=== PATIENT | female | born 1965 | race Caucasian/White ===

== ENCOUNTER 2017-10-11 13:21 | Outpatient (CLI) | payer OTHER ==
--- NOTE | 2017-10-14 14:26 | MMO ---
MAMMOGRAM DIGITAL SCREENING BILATERAL: DATE: 10/11/17 COMPARISON: 02/16/13. HISTORY: 52-year-old female for routine bilateral screening mammogram. TECHNIQUE: Digital mammographic views. Computer-aided detection (CAD) utilized. FINDINGS: The breasts are almost entirely fatty replaced. There is no evidence of suspicious mass, suspicious calcifications, or architectural distortion. The re is no significant interval change since the prior mammogram. IMPRESSION: 1. BIRADS 1 - Negative. 2. Recommendation: routine bilateral annual screening mammogram (unless the patient develops suspici ous clinical findings that would warrant earlier imaging follow up). POS: [facility]
== END 2017-10-11 13:22 | disposition home or self-care (01) ==
LOC: SCSMAMMO 13:21
PROVIDERS: ATTEND Family Medicine
DX: Z12.31 Encounter for screening mammogram for malignant neoplasm of breast (principal)
CPT/HCPCS: 77067

== ENCOUNTER 2018-05-11 13:09 | Outpatient (CLI) | payer OTHER ==
--- NOTE | 2018-05-11 15:37 | CT ---
PARANASAL SINUS CT NONCONTRAST: INDICATION: Facial pain, 52-year-old female. FINDINGS: Frontal sinus is clear. Ethmoid sinus is patent, as is the sphenoid sinus. There is a retention cys t at the inferior left maxillary sinus. Right maxillary sinus is clear. There is mild rightward yeny al septal deviation with an associated nasal septal spur. No evidence of otomastoid effusion. Unenh anced orbital contents are grossly unremarkable. There is prominent streak artifact emanating from t he left aspect of the oral cavity which limits evaluation. IMPRESSION: Retention cyst formation at the inferior left maxillary sinus. There is no acute paranasal sinus flu id level. POS: [facility]
== END 2018-05-11 13:10 | disposition home or self-care (01) ==
LOC: SCSCT 13:09
PROVIDERS: ATTEND Family Medicine
DX: J32.8 Other chronic sinusitis (principal)

== ENCOUNTER 2018-07-29 16:47 | Emergency (ER) | payer OTHER ==
[2018-07-29] MEDS ORDERED: Ketorolac Tromethamine 60 MG/2 ML VIAL ONE (17:22)
[2018-07-29] MEDS ORDERED: predniSONE 10 MG TAB ONE (17:22)
== END 2018-07-29 17:33 | disposition home or self-care (01) ==
LOC: SCSER 16:47
DX: J32.9 Chronic sinusitis, unspecified (principal); M54.2 Cervicalgia
CPT/HCPCS: 96372; J1885; J7512

== ENCOUNTER 2018-12-26 20:30 | Outpatient (CLI) | payer OTHER | END 2018-12-26 20:31 | disposition home or self-care (01) | LOC: SLEEPLAB 20:30 | PROVIDERS: ATTEND Internal Medicine Critical Care Medicine | DX: G47.33 Obstructive sleep apnea (adult) (pediatric) (principal); G25.81 Restless legs syndrome; R53.83 Other fatigue; R09.89 Other specified symptoms and signs involving the circulatory and respiratory systems; G47.61 Periodic limb movement disorder; R06.83 Snoring; G47.00 Insomnia, unspecified; F41.9 Anxiety disorder, unspecified | CPT/HCPCS: 95811 ==

== ENCOUNTER 2019-06-13 13:25 | Outpatient (CLI) | payer OTHER ==
--- NOTE | 2019-06-13 13:56 | RAD ---
Exam: XR Foot Lt 3 View STANDARD HISTORY: Gout COMPARISON: None FINDINGS: There is deformity involving the left fifth metatarsal likely due to prior injury. There is also slig ht deformity involving the medial aspect of the distal metatarsal of the great toe, but no osseous erosions or acute fracture is seen. No joint space narrowing is present. No subcutaneous calcificatio ns are identified. A plantar calcaneal enthesophyte is seen. No other findings. IMPRESSION: No acute osseous abnormality.
== END 2019-06-13 13:26 | disposition home or self-care (01) ==
LOC: SCSRAD 13:25
PROVIDERS: ATTEND Family Medicine
DX: M10.9 Gout, unspecified (principal)

== ENCOUNTER 2019-09-13 14:31 | Outpatient (CLI) | payer OTHER ==
--- NOTE | 2019-09-13 15:27 | RAD ---
XR Chest Pa Lat STANDARD HISTORY: Cough, fever, shortness of breath COMPARISON: 03/09/2019 FINDINGS: The heart size is normal. The lungs are well expanded without focal areas of consolidation, pneumothorax or pleural effusions. There are postop changes and metallic hardware in the left humerus. IMPRESSION: No radiographic evidence of acute cardiopulmonary process.
[2019-09-18 00:12] LABS: Alkaline Phosphastase Total 177 IU/L (39-117); Bone 52 % (14-68); Intestinal 0 % (0-18); Liver 48 % (18-85)
== END 2019-09-13 14:32 | disposition home or self-care (01) ==
LOC: SCSRAD 14:31
PROVIDERS: ATTEND Family Medicine
DX: R05 Cough (principal); R79.9 Abnormal finding of blood chemistry, unspecified; M25.50 Pain in unspecified joint
CPT/HCPCS: 36415; 71046; 83520; 84075; 86038; 86140; 86200; 86225

== ENCOUNTER 2021-01-02 15:22 | Outpatient (CLI) | payer BC ==
[2021-01-03 00:49] LABS: SARS-CoV-2 PCR by NAA Not Detected (NotDetected)
== END 2021-01-02 15:23 | disposition home or self-care (01) ==
LOC: LABBT 15:22
PROVIDERS: ATTEND Internal Medicine Gastroenterology
DX: Z01.812 Encounter for preprocedural laboratory examination (principal); Z20.822 Contact with and (suspected) exposure to COVID-19
CPT/HCPCS: U0003; U0005

== ENCOUNTER 2021-01-06 06:50 | Day surgery (SDC) | payer BC ==
[2020-11-19 09:27] VITALS: BMI 47.6
[2021-01-06] MEDS ORDERED: PROPOFOL 200 MG/20 ML VIAL ONE (08:59)
== END 2021-01-06 10:38 | disposition home or self-care (01) ==
LOC: SDC 06:50
PROVIDERS: ATTEND Internal Medicine Gastroenterology
PROC: 0DBL8ZX Excision of Transverse Colon, Via Natural or Artificial Opening Endoscopic, Diagnostic (ICD-10-PCS; principal; 2021-01-06)
PROC: 0DBM8ZX Excision of Descending Colon, Via Natural or Artificial Opening Endoscopic, Diagnostic (ICD-10-PCS; principal; 2021-01-06)
DX: Z12.11 Encounter for screening for malignant neoplasm of colon (principal); D12.4 Benign neoplasm of descending colon; D12.3 Benign neoplasm of transverse colon; K57.30 Diverticulosis of large intestine without perforation or abscess without bleeding; J45.909 Unspecified asthma, uncomplicated; G47.30 Sleep apnea, unspecified; M79.7 Fibromyalgia; Z86.010 Personal history of colon polyps; Z88.1 Allergy status to other antibiotic agents; Z91.013 Allergy to seafood; Z90.49 Acquired absence of other specified parts of digestive tract; Z95.5 Presence of coronary angioplasty implant and graft; Z90.710 Acquired absence of both cervix and uterus; Z98.890 Other specified postprocedural states; Z79.82 Long term (current) use of aspirin; Z79.899 Other long term (current) drug therapy
CPT/HCPCS: 88305; J2704

== ENCOUNTER 2021-04-27 12:13 | Outpatient (CLI) | payer BC | END 2021-04-27 12:14 | disposition home or self-care (01) | LOC: SCSRAD 12:13 | PROVIDERS: ATTEND Family Medicine | DX: R05.9 Cough, unspecified (principal) | CPT/HCPCS: 71046 ==

== ENCOUNTER 2021-12-25 10:20 | Outpatient (CLI) | payer BC | END 2021-12-25 10:21 | disposition home or self-care (01) | LOC: BICMAMMO 10:20 | PROVIDERS: ATTEND Family Medicine | DX: N63.0 Unspecified lump in unspecified breast (principal) ==

== ENCOUNTER 2024-02-18 00:51 | Observation (INO) | payer BC ==
[2024-02-18 01:42] LABS: #Basophils 0.07 10x3/uL (0.0-0.2); %Basophils 0.9 % (0.0-1.0); %Eosinophils 0.6 % (0.0-10.0); %Lymphocytes 32.2 % (21.0-51.0); %Monocytes 5.6 % (0.0-10.0); %Neutrophils 60.5 % (42.0-75.0); Hematocrit 46.1 % (36.0-47.0); Hemoglobin 14.9 g/dL (12.0-16.0); Mean Corpuscular HGB CONC 32.3 g/dL (32.0-36.0); Mean Corpuscular Hemoglobin 28.2 pg (27.0-31.0); Mean Corpuscular Volume 87.1 fL (78.0-98.0); Mean Platelet Volume 10.2 fL (7.4-10.4); Platelet Count 330 10x3/uL (130-400); RBC Distribution Width 13.9 % (11.5-14.5); Red Blood Cell (RBC) Count 5.29 mill/uL (4.20-5.40)
[2024-02-18 01:55] LABS: INR-International Normal Ratio 1.1; PTT 29.4 sec (22.9-36.1); Prothrombin Time 13.9 sec (12.0-14.7)
[2024-02-18 01:58] LABS: ALT (SGPT) 8 U/L (8-55); AST (SGOT) 10 U/L (5-34); Albumin 3.7 g/dL (3.5-5.0); Alkaline Phosphatase 113 U/L (40-110); Anion Gap 13 mmol/L (10-20); BUN (Urea Nitrogen) 10 mg/dL (9.8-20.1); Bilirubin, Total 0.3 mg/dL (0.2-1.2); Calc. Creatinine Clearance 0 mL/min (70-130); Calcium 9.1 mg/dL (7.8-10.44); Carbon Dioxide 25 mmol/L (22-29); Chloride 108 mmol/L (98-107); Estimated GFR 91; Globulin 3.2 g/dL (2.4-3.5); Glucose 83 mg/dL (70-105); Magnesium 2.1 mg/dL (1.6-2.6); Potassium 3.7 mmol/L (3.5-5.1); Protein, Total 6.9 g/dL (6.0-8.3); Sodium 142 mmol/L (136-145)
[2024-02-18 02:02] LABS: Troponin I Less than 0.010 ng/mL (< 0.028)
[2024-02-18] MEDS ORDERED: Aspirin Chewable 81 MG TAB ONE (02:23)
[2024-02-18] MEDS ORDERED: Ondansetron ODT 4 MG TAB PO PRN (04:37)
[2024-02-18] MEDS ORDERED: Acetaminophen 325 MG TAB PO PRN (04:37)
[2024-02-18 05:56] VITALS: BMI 36.8
[2024-02-18 07:20] LABS: CRP,High Sensitivity (Inhouse) 0.7 mg/dL (< or = 0.5)
[2024-02-18 07:54] LABS: Hemoglobin A1c 5.1 % (4.0-6.0)
[2024-02-18] MEDS: Enoxaparin 40 MG (0.4 mL) SYRINGE SC SCH (08:19)
[2024-02-18] MEDS ORDERED: Iopamidol-370 76% 500 ML MDV (1 ML CHARGE) ONE (10:49)
[2024-02-18] MEDS ORDERED: tiZANidine HCl 4 MG TAB PO PRN (15:50)
[2024-02-18] MEDS ORDERED: Albuterol 200 PUFF (6.7GM INHALER) INH PRN (15:50)
[2024-02-18] MEDS ORDERED: OFATUMUMAB 20 MG/0.4 ML SC SCH (16:00)
[2024-02-19 04:01] LABS: Cardiac Risk 4.2 (Less than 4.5)
[2024-02-19 06:37] LABS: #Basophils 0.07 10x3/uL (0.0-0.2); %Basophils 0.9 % (0.0-1.0); %Eosinophils 0.7 % (0.0-10.0); %Lymphocytes 33.1 % (21.0-51.0); %Monocytes 7.3 % (0.0-10.0); %Neutrophils 57.6 % (42.0-75.0); Hematocrit 41.8 % (36.0-47.0); Hemoglobin 13.6 g/dL (12.0-16.0); Mean Corpuscular HGB CONC 32.5 g/dL (32.0-36.0); Mean Corpuscular Hemoglobin 28.9 pg (27.0-31.0); Mean Corpuscular Volume 88.7 fL (78.0-98.0); Mean Platelet Volume 10.7 fL (7.4-10.4); Platelet Count 342 10x3/uL (130-400); RBC Distribution Width 14.3 % (11.5-14.5); Red Blood Cell (RBC) Count 4.71 mill/uL (4.20-5.40)
[2024-02-19 06:57] LABS: ALT (SGPT) 9 U/L (8-55); AST (SGOT) 10 U/L (5-34); Albumin 3.3 g/dL (3.5-5.0); Alkaline Phosphatase 105 U/L (40-110); Anion Gap 16 mmol/L (10-20); BUN (Urea Nitrogen) 13 mg/dL (9.8-20.1); Bilirubin, Total 0.3 mg/dL (0.2-1.2); Calc. Creatinine Clearance 132 mL/min (70-130); Calcium 9.2 mg/dL (7.8-10.44); Carbon Dioxide 24 mmol/L (22-29); Chloride 106 mmol/L (98-107); Estimated GFR 93; Glucose 92 mg/dL (70-105); Potassium 3.6 mmol/L (3.5-5.1); Protein, Total 6.3 g/dL (6.0-8.3); Sodium 142 mmol/L (136-145)
[2024-02-19] MEDS: Levothyroxine 175 MCG TAB PO SCH (07:07)
[2024-02-19] MEDS: Aspirin 81 mg Enteric Coated Tablet PO SCH (08:43)
[2024-02-19] MEDS: Amantadine HCl 100 mg Capsule PO SCH (08:43)
[2024-02-19] MEDS: Loratadine 10 MG TAB PO SCH (08:44)
[2024-02-19] MEDS: Losartan 25 MG TAB PO SCH (08:44)
[2024-02-19] MEDS: Pantoprazole DR 40 MG TAB PO SCH (08:44)
[2024-02-19] MEDS: Oxybutynin ER 5 MG TAB PO SCH (08:44)
[2024-02-19] MEDS: Multivitamin W/ Minerals 1 TAB PO SCH (08:44)
[2024-02-19] MEDS: DULoxetine 60 MG CAP PO SCH (08:44)
[2024-02-19] MEDS ORDERED: ALPHA LIPOIC ACID 600 MG PO SCH (09:00)
[2024-02-19] MEDS: Lorazepam 2 MG/ML VIAL SLOW IVP PRN (09:31)
[2024-02-19] MEDS ORDERED: Magnevist 469MG/ML 20 ML VIAL ONE ×3 (11:08)
[2024-02-19 12:35] VITALS: BP 132/83; TEMP 98.1
== END 2024-02-19 16:08 | disposition home or self-care (01) ==
LOC: ERS 00:51 → 2SE 03:47
PROVIDERS: ADMIT Family Medicine; ATTEND Family Medicine
DX: R53.1 Weakness (principal); G35 Multiple sclerosis; I10 Essential (primary) hypertension; E03.9 Hypothyroidism, unspecified; Z90.710 Acquired absence of both cervix and uterus; Z90.49 Acquired absence of other specified parts of digestive tract; Z86.73 Personal history of transient ischemic attack (TIA), and cerebral infarction without residual deficits; Z88.1 Allergy status to other antibiotic agents; Z91.013 Allergy to seafood; Z79.890 Hormone replacement therapy; Z79.51 Long term (current) use of inhaled steroids; Z79.01 Long term (current) use of anticoagulants; Z79.82 Long term (current) use of aspirin; Z79.899 Other long term (current) drug therapy
CPT/HCPCS: 36415; 70450; 70496; 70498; 70553; 71045; 72156; 72157; 76376; 80053; 80061; 82550; 83036; 83605; 83735; 83880; 84443; 84484; 85025; 85610; 85730; 86141; 93005; 96372; 96374; G0378; J1650; J2060; Q9967